=== PATIENT | male | born 1955 | race Caucasian/White ===

== ENCOUNTER → 2018-02-11 | Outpatient (CLI) | payer BC ==
--- NOTE | 2018-02-11 13:50 | US ---
EXAMINATION TYPE: US abdomen complete DATE OF EXAM: 02/11/2018 COMPARISON: NONE CLINICAL HISTORY: R10.13 epigastric Pain. EXAM MEASUREMENTS: Liver Length: 13.3 cm Gallbladder Wall: 0.2 cm CBD: 0.4 cm Spleen: 10.8 cm Right Kidney: 11.9 x 7.1 x 5.6 cm Left Kidney: 12.5 x 6.7 x 5.2 cm Pancreas: limited vis due to midline bowel gas Liver: limited vis due to midline bowel gas Gallbladder: full of stones, very little lumen seen Evidence for sonographic Day's sign: Yes CBD: wnl Spleen: wnl Right Kidney: No hydronephrosis or masses seen Left Kidney: No hydronephrosis or masses seen Upper IVC: wnl Abd Aorta: wnl The visualized liver is heterogeneously hyperechoic. Portions are obscured by overlying bowel gas. Th ere is no intrahepatic ductal dilatation seen. Evaluation for focal masses is suboptimal. The intrahe patic portion of the IVC and visualized abdominal aorta are within normal limits towards end of study . Gallbladder is identified. Majority of lumen is filled by mobile shadowing gallstones. No perichole cystic fluid or abnormal gallbladder wall thickening is seen. Sonographic Day's sign is noted posi tive. Common bile duct is unremarkable. The visualized portions of the pancreas are homogenous. Port ions of the head and tail are obscured by overlying bowel gas The spleen is unremarkable. Kidneys a re symmetric and free of hydronephrosis. No renal lesions are seen. IMPRESSION: 1. Stone filled gallbladder without convincing secondary ultrasound evidence for acute cholecystitis. In patient with epigastric pain and sonographic Day's sign it can not BE entirely excluded. Consi chris HIDA scan follow-up.
== END | disposition home or self-care (01) ==
LOC: RADUSWWP 07:22
PROVIDERS: ATTEND Internal Medicine
DX: K80.20 Calculus of gallbladder without cholecystitis without obstruction (principal)
CPT/HCPCS: 76700

== ENCOUNTER → 2019-02-22 | Outpatient (CLI) | payer BC ==
--- NOTE | 2019-02-22 08:57 | XR ---
EXAMINATION TYPE: XR sternum DATE OF EXAM: 02/22/2019 COMPARISON: NONE HISTORY: [id number] sternal pain TECHNIQUE: 2 views of the sternum are submitted. FINDINGS: No evidence for displaced or depressed sternal fracture. Retrosternal airspace is intact. IMPRESSION: Negative
== END | disposition home or self-care (01) ==
LOC: RADXRYALE 08:34
PROVIDERS: ATTEND Internal Medicine
DX: R07.89 Other chest pain (principal)
CPT/HCPCS: 71120